=== PATIENT | male | born 1945 | race Caucasian/White ===

== ENCOUNTER 2020-06-19 15:24 | Observation (INO) | payer OTHER ==
[~2020-06-19] VITALS: Ht 188 cm; Wt 86.2 kg
[~2020-06-19 15:24] MED LIST: DESYREL 50 MG T50 MG PO; EFFEXOR XR 150150 MG PO; GLUCOPHAGE XR500 MG PO; GLUCOTROL5 MG PO; HYDROXYZINE HCL10 MG PO; HYTRIN CAP 5 MG5 MG PO
[2020-06-19 16:27] LABS: HEMOGLOBIN 14.7 gm/dl (14.0-17.5); RED BLOOD COUNT 4.75 M/UL (4.20-5.50); WHITE BLOOD COUNT 5.9 K/UL (4.5-11.0)
[2020-06-19 16:48] LABS: BUN/CREATININE RATIO 13 (0-10)
[2020-06-19] MEDS ORDERED: FISH OIL 1,0001 EAC3 PO (19:57)
[2020-06-19] MEDS ORDERED: METFORMIN HCL850 MG PO (19:57)
[2020-06-19] MEDS ORDERED: PLAVIX 75 MG TA75 MG PO (19:58)
[2020-06-19] MEDS ORDERED: CRESTOR 10 MG T10 MG PO (19:58)
[2020-06-19] MEDS ORDERED: TRAZODONE HCL100 MG PO (19:58)
[2020-06-19] MEDS ORDERED: MAGNESIUM OXID400 M1 PO (19:59)
[2020-06-19] MEDS ORDERED: METOPROLOL SUC100 MG PO (19:59)
[2020-06-19] MEDS ORDERED: VENLAFAXINE HCL75 M2 PO (19:59)
[2020-06-19] MEDS ORDERED: MIRTAZAPINE30 MG PO (20:00)
[2020-06-19] MEDS ORDERED: BUSPAR 10MG10 MG PO (20:00)
[2020-06-19] MEDS ORDERED: ELIQUIS5 MG PO (20:01)
[2020-06-19] MEDS ORDERED: VITAMIN D325 MC6 PO (20:14)
[2020-06-20 05:11] LABS: WHITE BLOOD COUNT 5.5 K/UL (4.5-11.0)
[2020-06-20 05:12] LABS: HEMOGLOBIN 11.7 gm/dl (14.0-17.5); RED BLOOD COUNT 4.04 M/UL (4.20-5.50)
[2020-06-20 05:24] LABS: BUN/CREATININE RATIO 13 (0-10)
[2020-06-20] MEDS ORDERED: METOPROLOL SUC100 MG PO (11:51)
== END 2020-06-20 10:36 | disposition home or self-care (01) ==
LOC: ER1 15:24 → CDU 17:30 → PROG CARE 23:35
PROVIDERS: Emergency Medicine; Physician Assistant; ADMIT Internal Medicine
DX: I48.92 Unspecified atrial flutter (principal); I48.0 Paroxysmal atrial fibrillation; I10 Essential (primary) hypertension; I25.10 Atherosclerotic heart disease of native coronary artery without angina pectoris; I25.2 Old myocardial infarction; E78.5 Hyperlipidemia, unspecified; E11.9 Type 2 diabetes mellitus without complications; N40.0 Benign prostatic hyperplasia without lower urinary tract symptoms; Z95.5 Presence of coronary angioplasty implant and graft; Z85.09 Personal history of malignant neoplasm of other digestive organs; Z92.21 Personal history of antineoplastic chemotherapy; Z90.49 Acquired absence of other specified parts of digestive tract; Z20.822 Contact with and (suspected) exposure to COVID-19; Z79.01 Long term (current) use of anticoagulants; Z79.899 Other long term (current) drug therapy
CPT/HCPCS: 71045; 80048; 80053; 82550; 82553; 82962; 83874; 83880; 84439; 84443; 84484; 85025; 85379; 85610; 85730; 93005; 96372; 96374; 96375; 96376; 99285; G0378; J7030; U0002

== ENCOUNTER 2020-11-11 22:34 | Emergency (ER) | payer OTHER ==
[~2020-11-11 22:34] MED LIST changes: +BUSPAR 10MG10 MG PO; +CRESTOR 10 MG T10 MG PO; +ELIQUIS5 MG PO; +FISH OIL 1,0001 EAC3 PO; +MAGNESIUM OXID400 M1 PO; +METFORMIN HCL850 MG PO; +METOPROLOL SUC100 MG PO; +MIRTAZAPINE30 MG PO; +PLAVIX 75 MG TA75 MG PO; +TRAZODONE HCL100 MG PO; +VENLAFAXINE HCL75 M2 PO; +VITAMIN D325 MC6 PO
[2020-11-11 23:33] LABS: HEMOGLOBIN 14.5 gm/dl (14.0-17.5); RED BLOOD COUNT 4.81 M/UL (4.20-5.50); WHITE BLOOD COUNT 5.5 K/UL (4.5-11.0)
[2020-11-11 23:53] LABS: BUN/CREATININE RATIO 13 (0-10)
== END 2020-11-12 02:05 | disposition home or self-care (01) ==
LOC: ER1 22:34
PROVIDERS: Physician Assistant
DX: L76.32 Postprocedural hematoma of skin and subcutaneous tissue following other procedure (principal); E78.5 Hyperlipidemia, unspecified; E11.9 Type 2 diabetes mellitus without complications; I25.2 Old myocardial infarction; I10 Essential (primary) hypertension; F17.210 Nicotine dependence, cigarettes, uncomplicated
CPT/HCPCS: 80053; 85025; 99283